=== PATIENT | male | born 1940 | race Caucasian/White ===

== ENCOUNTER 2017-08-15 06:30 | Day surgery (SDC) | payer MEDICARE, BC ==
[2017-08-15] MEDS ORDERED: Lactated Ringers 1,000 ML IV SCH (07:00)
[2017-08-15] MEDS ORDERED: Propofol 200 MG/20 ML SDV ONE ×2 (07:23→07:55)
[2017-08-15] MEDS ORDERED: fentaNYL 100 MCG/2 ML SDV ONE (07:23)
[2017-08-15] MEDS ORDERED: Midazolam 1 MG/ML 2 ML SDV ONE (07:23)
--- NOTE | 2017-08-15 14:48 | OR ---
DATE OF PROCEDURE: 08/15/2017 PREOPERATIVE DIAGNOSIS: Colon cancer screening, [id number]. POSTOPERATIVE DIAGNOSIS: Unremarkable colonoscopy, fistula in ano. PROCEDURE: Colonoscopy to the cecum. SURGEON: Khadar Krishnan MD. ANESTHESIA: IV anesthesia with monitored anesthesia care. INDICATION: This 77-year-old white male is referred for a colonoscopy for colon cancer screening. He says his last colonoscopic exam was done about 12 years ago in [place]. He says he has a [id number] which has been operated on a couple of times. I counseled him for the procedure, including risks and alternatives, and he gave his informed consent to proceed. DESCRIPTION OF PROCEDURE: The patient was placed in the left lateral decubitus position. IV anesthesia was administered by the Anesthesia Service. Time-out was held. 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 The flexible video Olympus colonoscope was introduced through his anus, up his rectum, and out his colon all the way to the cecum. Once the cecum was reached, the scope was slowly withdrawn , examining the mucosa throughout. No mucosal abnormalities were noted. The scope was retroflexed in the rectum with the distal rectum appearing unremarkable. The scope was straightened and removed. He tolerated the procedure well. Khadar Krishnan MD /[id number] MTDD
== END 2017-08-15 09:24 | disposition home or self-care (01) ==
LOC: JP.SDS 06:30
PROVIDERS: ATTEND Surgery
DX: K60.3 Anal fistula (principal); I10 Essential (primary) hypertension
CPT/HCPCS: 45378; J2250; J2704; J3010; J7120

== ENCOUNTER 2020-02-27 01:06 | Emergency (ER) | payer MEDICARE, BC ==
[2020-02-27] MEDS ORDERED: LORazepam 2 MG/ML SDV IM PRN (01:48)
--- NOTE | 2020-02-27 01:49 | EDM.PDOC ---
ED HPI GENERAL MEDICAL PROBLEM - General Chief Complaint: ENT Problem Stated Complaint: TROUBLE SWALLOWING Time Seen by Provider: 02/27/20 01:25 Source of Information: Reports: Patient, Family History Limitations: Reports: No Limitations - History of Present Illness INITIAL COMMENTS - FREE TEXT/NARRATIVE: 79-year-old male brought in by his because of difficulty swallowing. He feels a lack of coordination on the left side of his throat and it does not feel like he is swallowing normally. He is able to drink water, and if he waits a few seconds to minutes he can swallow. It is not an obstructive process, but he is so concerned about it that he thinks he needs a tracheostomy or something so he does not . He is extremely anxious. No fevers or chills. He had a flu vaccine today, and a decreased dose of Seroquel tonight at bedtime. Onset: Sudden (Symptoms started fairly suddenly at 11 PM, 2-1/2 hours ago) Associated Symptoms: Reports: Other (Extremely anxious). Denies: Chest Pain, Cough, Nausea/Vomiting, Shortness of Breath, Weakness - Related Data Allergies Allergy/AdvReac Type Severity Reaction Status Date / Time No Known Allergies Allergy Verified 02/27/20 01:21 Home Meds: Home Meds QUEtiapine [SEROquel] 25 tab PO BEDTIME 04/24/18 [History] Sennosides/Docusate Sodium [Senna-Docusate Sodium Tablet] 1 each PO DAILY 04/24/18 [History] Gabapentin [Neurontin] 100 mg PO BID 02/27/20 [History] Mirtazapine [Remeron] 15 mg PO BEDTIME 02/27/20 [History] Sulfamethoxazole/Trimethoprim [Sulfamethoxazole-Tmp Ds Tablet] 1 each PO ASDIRECTED 02/27/20 [History] Past Medical History HEENT History: Reports: Cataract Cardiovascular History: Reports: Hypertension Respiratory History: Reports: SOB, Other (See Below) Other Respiratory History: sob with exertion Gastrointestinal History: Reports: None Genitourinary History: Reports: None Musculoskeletal History: Reports: Fracture Neurological History: Reports: None Psychiatric History: Reports: Addiction, Anxiety, Depression Endocrine/Metabolic History: Reports: None Hematologic History: Reports: Blood Transfusion(s) Immunologic History: Reports: None Oncologic (Cancer) History: Reports: Lung, Prostate, Other (See Below) Other Oncologic History: tongue cancer Dermatologic History: Reports: None - Infectious Disease History Infectious Disease History: Reports: Chicken Pox, Measles - Past Surgical History Head Surgeries/Procedures: Reports: None HEENT Surgical History: Reports: Cataract Surgery, Oral Surgery, Tonsillectomy Respiratory Surgical History: Reports: Lung Resection, Pneumonectomy GI Surgical History: Reports: Hernia Repair/Other Male Surgical History: Reports: Prostate Biopsy, Other (See Below) Other Male Surgeries/Procedures: seeds for radiation. Social & Family History - Family History HEENT: Reports: Cataract - Tobacco Use Smoking Status *Q: Former Smoker Used Tobacco, but Quit: Yes Month/Year Tobacco Last Used: 2017 - Caffeine Use Caffeine Use: Reports: Coffee, Soda, Tea - Recreational Drug Use Recreational Drug Use: No ED ROS ENT - Review of Systems Review Of Systems: See Below Constitutional: Denies: Fever, Chills, Malaise HEENT: Reports: Other (He has had CAT scans within the last 1 to 2 months of his throat which have been negative for new growths). Denies: Throat Pain, Throat Swelling Respiratory: Denies: Shortness of Breath Cardiovascular: Denies: Chest Pain GI/Abdominal: Denies: Nausea, Vomiting Neurological: Denies: Headache Psychiatric: Reports: Anxiety ED EXAM, ENT - Physical Exam Exam: See Below Exam Limited By: No Limitations General Appearance: Alert, No Apparent Distress, Anxious Mouth/Throat: Normal Inspection (No asymmetry masses, swelling, redness. He has some defect of the left tongue from previous surgery. No external adenopathy.) Head: Atraumatic Respiratory/Chest: No Respiratory Distress, Lungs Clear Cardiovascular: Regular Rate, Rhythm Neurological: Alert, Oriented Psychiatric: Anxious Skin: Warm, Dry Course - Vital Signs Last Recorded V/S: Last Vital Signs Temp 97.6 F 02/27/20 01:24 Pulse 94 02/27/20 01:24 Resp 18 02/27/20 01:24 BP 164/91 H 02/27/20 01:24 Pulse Ox 95 02/27/20 01:24 - Orders/Labs/Meds Meds: Medications Discontinued Medications Generic Name Dose Route Start Last Admin Trade Name Freq PRN Reason Stop Dose Admin Lorazepam 1 mg 02/27/20 01:55 02/27/20 02:01 Ativan PO 02/27/20 01:56 1 mg ONETIME ONE Administration - Re-Assessments/Exams Free Text/Narrative Re-Assessment/Exam: 02/27/20 01:54 1 mg of oral Ativan were offered. Patient can recheck tomorrow if symptoms have not resolved. Patient swallowed the Ativan without difficulty. Will recheck tomorrow if still symptoms. Departure - Departure Time of Disposition: 02:07 Disposition: Home, Self-Care 01 Clinical Impression: Dysphasia - Discharge Information Instructions: Dysphagia Referrals: Viraj Lomeli MD [Primary Care Provider] - Forms: ED Department Discharge Care Plan Goals: Recheck tomorrow if symptoms have not improved. Try to rest tonight. Sepsis Event Note (ED) - Evaluation Sepsis Screening Result: No Definite Risk
[2020-02-27] MEDS ORDERED: LORazepam 1 MG Tab PO ONE (01:55)
== END 2020-02-27 02:11 | disposition home or self-care (01) ==
LOC: JP.ED 01:06
DX: R47.02 Dysphasia (principal); I10 Essential (primary) hypertension; F32.9 Major depressive disorder, single episode, unspecified; Z87.891 Personal history of nicotine dependence; Z79.899 Other long term (current) drug therapy
CPT/HCPCS: 99283; A9270

== ENCOUNTER 2023-12-17 18:17 | Emergency (ER) | payer MEDICARE, BC ==
[2023-12-17] MEDS: Silver Nitrate Applicator Each TOP ONE (22:24)
[2023-12-17] MEDS: Bacitracin Oint 1 GM U/D Packet TOP ONE (22:24)
[2023-12-17] MEDS: Lidocaine 1% with EPINEPHrine 1:100,000 50 ML MDV SUBCUT STA (22:24)
== END 2023-12-17 22:35 | disposition home or self-care (01) ==
LOC: JP.ED 18:17
DX: L76.21 Postprocedural hemorrhage of skin and subcutaneous tissue following a dermatologic procedure (principal); I10 Essential (primary) hypertension; Z79.899 Other long term (current) drug therapy
CPT/HCPCS: 99283

== ENCOUNTER 2025-01-29 06:28 | Day surgery (SDC) | payer MEDICARE, BC ==
[2025-01-29] MEDS: Lactated Ringers 1,000 ML IV SCH (07:27)
[2025-01-29] MEDS ORDERED: Propofol 200 MG/20 ML SDV ONE (07:40)
== END 2025-01-29 09:20 | disposition home or self-care (01) ==
LOC: JP.SDS 06:28
PROVIDERS: ATTEND Surgery
DX: R13.10 Dysphagia, unspecified (principal); I10 Essential (primary) hypertension
CPT/HCPCS: 43200; J2704; J7120

== ENCOUNTER 2025-03-04 08:09 | Emergency (ER) | payer MEDICARE, BC ==
[2025-03-04 08:23] LABS: PLATELET COUNT,PLT 150 K/uL (130-375); RED BLOOD CELL COUNT 3.47 M/uL (4.14-5.76); WHITE BLOOD CELL COUNT,WBC 3.4 K/uL (3.2-11.0)
[2025-03-04 08:43] LABS: ATYPICAL LYMPHOCYTES MANY
[2025-03-04 08:45] LABS: A/G RATIO 0.9 (1.2-2.2); ALANINE AMINOTRANSFERASE,ALT 26 U/L (12-78); ASPARTATE AMNIOTRANSFERASE,AST 18 U/L (15-37); BILIRUBIN TOTAL 0.5 mg/dL (0.2-1.0); BLOOD UREA NITROGEN,BUN 25 mg/dL (7-18); CARBON DIOXIDE,CO2 29 mmol/L (21-32); CHLORIDE,CL 100 mmol/L (100-108); CREATININE 1.2 mg/dL (0.8-1.3); EST CRCL DRUG DOSING (CG) 39.69 mL/min; ESTIMATED GFR 60 mL/min (>60); GLUCOSE RANDOM 87 mg/dL (74-106); POTASSIUM,K 3.8 mmol/L (3.6-5.2); PROTEIN TOTAL,TP 7.2 g/dL (6.4-8.2); SODIUM,NA 136 mmol/L (140-148)
[2025-03-04 09:01] LABS: IRON,FE 89 ug/dL (65-175); PERCENT FE SATURATION 40 % (20-55)
[2025-03-04 09:38] LABS: LYMPHOCYTES ABSOLUTE MAN 0.82 K/uL (0.8-3.3); LYMPHOCYTES PERCENT MAN 24 % (24-44); MONOCYTES ABSOLUTE MAN 0.31 K/uL (0.20-0.90); MONOCYTES PERCENT MAN 9 % (2-6); NEUTROPHILS ABSOLUTE MAN 2.28 K/uL (1.0-7.6); SEG NEUTROPHILS PERCENT MAN 67 % (36-66)
[2025-03-04 09:38] LABS: APPEARANCE,URINE CLEAR (CLEAR); GLUCOSE,URINE 100 mg/dL (NEGATIVE); OCCULT BLOOD,URINE NEGATIVE (NEGATIVE)
[2025-03-04 09:49] LABS: SQUAMOUS EPITHELIAL CELLS,UR NOT SEEN /HPF
[2025-03-04] MEDS: guaiFENesin 100 MG/5 ML Soln 10 ML UD Cup PO SCH (12:07)
== END 2025-03-04 14:59 | disposition home or self-care (01) ==
LOC: JP.ED 08:09
DX: F41.9 Anxiety disorder, unspecified (principal); K11.7 Disturbances of salivary secretion; I10 Essential (primary) hypertension; Z79.899 Other long term (current) drug therapy; Z86.16 Personal history of COVID-19
CPT/HCPCS: 36415; 70450; 71045; 80053; 81001; 83550; 85025; 86308; 87426; 96360; 99285; A9270; J7030; 99283

== ENCOUNTER 2025-05-20 08:54 | Emergency (ER) | payer MEDICARE, BC ==
[2025-05-20] MEDS: Ondansetron 4 MG/2 ML SDV IVPUSH ONE (09:35)
[2025-05-20 09:39] LABS: BASOPHILS PERCENT AUTO 0.3 % (0.1-1.3); EOSINOPHILS PERCENT AUTO 0.0 % (0.0-5.4); IMMATURE GRAN PERCENT AUTO 0.5 % (0.0-0.7); LYMPHOCYTES ABSOLUTE AUTO 0.56 K/uL (0.8-3.3); LYMPHOCYTES PERCENT AUTO 15.2 % (11.4-47.7); MONOCYTES ABSOLUTE AUTO 0.33 K/uL (0.20-0.90); MONOCYTES PERCENT AUTO 8.9 % (3.3-12.6); NEUTROPHILS ABSOLUTE AUTO 2.77 K/uL (1.0-7.6); NEUTROPHILS PERCENT AUTO 75.1 % (40.0-78.1); PLATELET COUNT,PLT 258 K/uL (130-375); RED BLOOD CELL COUNT 3.59 M/uL (4.14-5.76); WHITE BLOOD CELL COUNT,WBC 3.7 K/uL (3.2-11.0)
[2025-05-20 09:41] LABS: BASOPHILS ABSOLUTE AUTO 0.01 K/uL (0.00-0.10); EOSINOPHILS ABSOLUTE AUTO 0.00 K/uL (0.00-0.40); IMMATURE GRAN ABSOLUTE AUTO 0.02 K/uL (0.00-0.23)
[2025-05-20 09:59] LABS: A/G RATIO 0.8 (1.2-2.2); ALANINE AMINOTRANSFERASE,ALT 21 U/L (12-78); ASPARTATE AMNIOTRANSFERASE,AST 35 U/L (15-37); BILIRUBIN TOTAL 0.6 mg/dL (0.2-1.0); BLOOD UREA NITROGEN,BUN 23 mg/dL (7-18); CARBON DIOXIDE,CO2 27 mmol/L (21-32); CHLORIDE,CL 102 mmol/L (100-108); CREATININE 0.9 mg/dL (0.8-1.3); EST CRCL DRUG DOSING (CG) 50.18 mL/min; ESTIMATED GFR 84 mL/min (>60); GLUCOSE RANDOM 127 mg/dL (74-106); POTASSIUM,K 3.8 mmol/L (3.6-5.2); PROTEIN TOTAL,TP 8.6 g/dL (6.4-8.2); SODIUM,NA 140 mmol/L (140-148)
[2025-05-20] MEDS: Iopamidol 612 MG/ML 100 ML Bottle IV SCH (10:24)
[2025-05-20] MEDS: Sodium Chloride 0.9% 10 ML Syringe FLUSH ONE (10:24)
== END 2025-05-20 12:45 | disposition home or self-care (01) ==
LOC: JP.ED 08:54
DX: R13.10 Dysphagia, unspecified (principal); K31.9 Disease of stomach and duodenum, unspecified; Z79.899 Other long term (current) drug therapy; Z86.16 Personal history of COVID-19; Z87.891 Personal history of nicotine dependence
CPT/HCPCS: 36415; 74177; 80053; 83690; 85025; 96374; 99284; J2405; J7030; Q9967